=== PATIENT | female | born 1985 | race Caucasian/White ===

== ENCOUNTER 2018-09-18 19:58 | Emergency (ER) | payer BC ==
[~2018-09-18] VITALS: Ht 165.1 cm; Wt 90.7 kg
== END 2018-09-18 22:08 | disposition home or self-care (01) ==
LOC: ER 19:58
DX: J11.1 Influenza due to unidentified influenza virus with other respiratory manifestations (principal); J03.80 Acute tonsillitis due to other specified organisms